=== PATIENT | female | born 2000 | race Caucasian/White ===

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

== ENCOUNTER 2018-01-05 15:11 | Inpatient (IN) | payer OTHER ==
[2018-01-05] MEDS: LR 800 ML IV (15:30)
[2018-01-05 15:42] LABS: HEMATOCRIT 33.3 % (36.0-47.0); HEMOGLOBIN 11.7 g/dl (12.0-15.5); MEAN CORPUSCULAR HGB CONC 35.1 g/dl (32.0-36.5); MEAN CORPUSCULAR VOLUME 88.1 fl (80.0-96.0); PLATELET COUNT, AUTOMATED 189 10^3/uL (150-450); RED BLOOD COUNT 3.78 10^6/uL (4.00-5.40); RED CELL DISTRIBUTION WIDTH 12.8 % (11.5-14.5); WHITE BLOOD COUNT 12.8 10^3/uL (4.0-10.0)
[2018-01-05 16:13] LABS: ALT/SGPT 19 U/L (12-78); AST/SGOT 13 U/L (7-37); BILIRUBIN,TOTAL 0.3 MG/DL (0.2-1.0); LDH LACTATE DEHYDROGENASE 178 U/L (84-246); URIC ACID 3.1 MG/DL (2.6-6.0)
[2018-01-05] MEDS: LR 1,000 ML IV ×3 (16:29→20:15)
[2018-01-05] MEDS ORDERED: ceFAZolin 2 GM/D5W 50 ML IV BAG (J0690 PER 500MG) As Ordered (17:04)
[2018-01-05] MEDS ORDERED: BICITRA 30ML SOLN UDC As Ordered (17:04)
[2018-01-05] MEDS: BICITRA 30ML SOLN UDC PO (17:11)
[2018-01-05] MEDS ORDERED: MORPHINE PRES-FREE INJ 10 MG/10 ML VIAL (J2274) As Ordered (17:21)
[2018-01-05] MEDS ORDERED: OXYTOCIN INJ 10 UNITS/ML VIAL (J2590) As Ordered (17:21)
[2018-01-05] MEDS ORDERED: ONDANSETRON 4MG/2ML VIAL (J2405) As Ordered (17:21)
[2018-01-05] MEDS ORDERED: fentaNYL 100 MCG/2 ML INJECTION (J3010) As Ordered (17:21)
[2018-01-05] MEDS ORDERED: METHYLERGONOVINE MALEATE 0.2 MG TAB PO (17:30)
[2018-01-05] MEDS ORDERED: ONDANSETRON 4MG/2ML VIAL (J2405) IV ×3 (17:30→18:45)
[2018-01-05] MEDS ORDERED: MOM 30ML SUSPENSION UDC PO (17:30)
[2018-01-05] MEDS ORDERED: METOCLOPRAMIDE INJ 10MG/2ML VIAL (J2765) IV ×2 (17:38→18:45)
[2018-01-05] MEDS ORDERED: NALOXONE INJ 0.4 MG/1 ML VIAL (J2310) IV ×2 (17:38)
[2018-01-05] MEDS ORDERED: NALBUPHINE HCL 10 MG/ML AMP (J2300) IV (17:38)
[2018-01-05 18:27] LABS: CORD GAS ABE V -3.9; CORD GAS HCO3 V 20.9 MEQ/L; CORD GAS O2 SAT V 79.1 %; CORD GAS PCO2 V 37.3 mmHg; CORD GAS PH V 7.366 UNITS; CORD GAS PO2 V 33.2 mmHg; CORD GAS SBC V 20.8 MEQ/L
[2018-01-05 18:28] LABS: CORD GAS ABE A -3.8; CORD GAS HCO3 A 22.6 MEQ/L; CORD GAS O2 SAT A 23.8 %; CORD GAS PCO2 A 46.2 mmHg; CORD GAS PH A 7.308 UNITS; CORD GAS PO2 A 13.3 mmHg; CORD GAS SBC A 19.8 MEQ/L; CORD GAS TCO2 A 24.1 MEQ/L
[2018-01-05] MEDS ORDERED: PERCOCET 5MG/325MG TAB PO (18:45)
[2018-01-05] MEDS ORDERED: fentaNYL 100 MCG/2 ML INJECTION (J3010) IV (18:45)
[2018-01-05] MEDS ORDERED: MEPERIDINE INJ 25 MG/ML VIAL (J2175) IV (18:45)
[2018-01-05] MEDS: NORCO, ANEXSIA 5/325MG TABLET (HYDROcodone/ACETAMINOPHEN) PO (20:27)
[2018-01-05] MEDS: DOCUSATE SODIUM 100 MG CAP PO (20:27)
[2018-01-05] MEDS: IBUPROFEN 800 MG TAB PO (22:00)
[2018-01-06] MEDS: NORCO, ANEXSIA 5/325MG TABLET (HYDROcodone/ACETAMINOPHEN) PO ×4 (00:50→22:04)
[2018-01-06] MEDS: LR 1,000 ML IV ×3 (01:17→13:23)
[2018-01-06] MEDS: IBUPROFEN 800 MG TAB PO ×3 (05:13→21:06)
[2018-01-06 07:14] LABS: HEMATOCRIT 28.8 % (36.0-47.0); HEMOGLOBIN 10.1 g/dl (12.0-15.5); MEAN CORPUSCULAR HEMOGLOBIN 31.1 pg (27.0-33.0); MEAN CORPUSCULAR HGB CONC 35.1 g/dl (32.0-36.5); MEAN CORPUSCULAR VOLUME 88.6 fl (80.0-96.0); PLATELET COUNT, AUTOMATED 161 10^3/uL (150-450); RED BLOOD COUNT 3.25 10^6/uL (4.00-5.40); RED CELL DISTRIBUTION WIDTH 12.7 % (11.5-14.5); WHITE BLOOD COUNT 11.9 10^3/uL (4.0-10.0)
[2018-01-06] MEDS: PRENATAL VITAMINS CHEWABLE TABLET PO (09:18)
[2018-01-06] MEDS: DOCUSATE SODIUM 100 MG CAP PO ×2 (09:18→21:05)
[2018-01-07] MEDS: NORCO, ANEXSIA 5/325MG TABLET (HYDROcodone/ACETAMINOPHEN) PO ×5 (02:08→23:13)
[2018-01-07] MEDS: IBUPROFEN 800 MG TAB PO ×3 (05:14→22:03)
[2018-01-07] MEDS: PRENATAL VITAMINS CHEWABLE TABLET PO (07:45)
[2018-01-07] MEDS: DOCUSATE SODIUM 100 MG CAP PO ×2 (07:45→22:03)
[2018-01-07] MEDS: MEASLES,MUMPS,RUBELLA VACCINE INJ (MMR-II) (90707) SC (20:04)
[2018-01-07] MEDS: RHOGAM 300 MCG (1500 IU) INJ (J2790) IM (20:04)
[2018-01-08] MEDS: NORCO, ANEXSIA 5/325MG TABLET (HYDROcodone/ACETAMINOPHEN) PO (04:34)
[2018-01-08] MEDS: IBUPROFEN 800 MG TAB PO ×2 (06:38→13:22)
[2018-01-08] MEDS: PRENATAL VITAMINS CHEWABLE TABLET PO (07:47)
[2018-01-08] MEDS: DOCUSATE SODIUM 100 MG CAP PO (07:47)
== END 2018-01-08 13:50 | disposition home or self-care (01) | DRG 540 ==
LOC: M LDI 15:11 → M OBS 19:47
PROC: 10D00Z1 Extraction of Products of Conception, Low, Open Approach (ICD-10-PCS; principal; 2018-01-05 17:25)
DX: O41.03X0 Oligohydramnios, third trimester, not applicable or unspecified (principal); Z37.0 Single live birth; Z3A.37 37 weeks gestation of pregnancy; O36.5930 Maternal care for other known or suspected poor fetal growth, third trimester, not applicable or unspecified; O32.1XX0 Maternal care for breech presentation, not applicable or unspecified; O69.81X0 Labor and delivery complicated by cord around neck, without compression, not applicable or unspecified

== ENCOUNTER → 2018-01-05 | Outpatient (CLI) | payer OTHER | LOC: M RAD 06:27 | DX: O26.849 Uterine size-date discrepancy, unspecified trimester (principal); Z3A.37 37 weeks gestation of pregnancy | CPT/HCPCS: 76815 ==

== ENCOUNTER → 2018-04-09 | Outpatient (CLI) | payer OTHER ==
[2018-04-09 21:07] LABS: IRON (FE) 63 UG/DL (50-170)
== END ==
LOC: M WUC 15:54
DX: E61.1 Iron deficiency (principal)
CPT/HCPCS: 83540

== ENCOUNTER → 2020-01-10 | Outpatient (REF) | payer OTHER ==
[~2020-01-10] MED LIST: IBUP-1114 PO; NORC1TAB7 PO; PERC5TAB12 PO; PRENTAB16 PO
== END ==
LOC: M LAB REF 20:19
PROVIDERS: ATTEND Physician Assistant Medical
DX: Z03.818 Encounter for observation for suspected exposure to other biological agents ruled out (principal); Z11.59 Encounter for screening for other viral diseases

== ENCOUNTER → 2021-03-01 | Outpatient (REF) | payer OTHER ==
[2021-03-01 18:27] LABS: HEMATOCRIT 35.9 % (36.0-47.0); HEMOGLOBIN 11.9 g/dl (12.0-15.5); MEAN CORPUSCULAR HEMOGLOBIN 28.7 pg (27.0-33.0); MEAN CORPUSCULAR HGB CONC 33.1 g/dl (32.0-36.5); MEAN CORPUSCULAR VOLUME 86.5 fl (80.0-96.0); PLATELET COUNT, AUTOMATED 205 10^3/uL (150-450); RED BLOOD COUNT 4.15 10^6/uL (4.00-5.40); WHITE BLOOD COUNT 6.8 10^3/uL (4.0-10.0)
[2021-03-01 19:56] LABS: HCG, SERUM QUANTITATIVE 3276 MIU/ML; HEPATITIS B SURFACE ANTIGEN NEGATIVE (NEGATIVE); HEPATITIS C VIRUS ABY INDEX < 0.0 INDEX (<0.8); HIV 1&2 SCREEN CENTAUR NEGATIVE (NEGATIVE)
== END ==
LOC: M LAB REF 17:10
PROVIDERS: ATTEND Obstetrics & Gynecology
DX: O36.80X0 Pregnancy with inconclusive fetal viability, not applicable or unspecified (principal); Z32.01 Encounter for pregnancy test, result positive

== ENCOUNTER → 2021-07-30 | Outpatient (CLI) | payer OTHER ==
[2021-07-30 12:08] LABS: HEMATOCRIT 33.7 % (36.0-47.0); HEMOGLOBIN 11.2 g/dl (12.0-15.5); MEAN CORPUSCULAR HEMOGLOBIN 30.4 pg (27.0-33.0); MEAN CORPUSCULAR HGB CONC 33.2 g/dl (32.0-36.5); MEAN CORPUSCULAR VOLUME 91.6 fl (80.0-96.0); PLATELET COUNT, AUTOMATED 205 10^3/uL (150-450); RED BLOOD COUNT 3.68 10^6/uL (4.00-5.40); WHITE BLOOD COUNT 10.2 10^3/uL (4.0-10.0)
== END ==
LOC: M LAB 08:53
PROVIDERS: ATTEND Advanced Practice Midwife
DX: Z34.82 Encounter for supervision of other normal pregnancy, second trimester (principal)

== ENCOUNTER → 2021-10-04 | Outpatient (REF) | payer OTHER | LOC: M LAB REF 12:46 | PROVIDERS: ATTEND Obstetrics & Gynecology | DX: Z34.83 Encounter for supervision of other normal pregnancy, third trimester (principal) ==

== ENCOUNTER → 2021-11-03 | Outpatient (CLI) | payer OTHER | LOC: M LABSMTC 09:57 | PROVIDERS: ATTEND Anesthesiology | DX: Z01.812 Encounter for preprocedural laboratory examination (principal); Z20.822 Contact with and (suspected) exposure to COVID-19 ==

== ENCOUNTER 2021-11-07 12:18 | Inpatient (IN) | payer OTHER ==
[2021-11-07] VITALS (11 sets, daily range): BP systolic 124–175; BP diastolic 68–96
[~2021-11-07] VITALS: Ht 167.6 cm; Wt 104.1 kg
[2021-11-07] MEDS ORDERED: LACTATED RINGER'S 1000 ML IV STA (12:48)
[2021-11-07] MEDS ORDERED: CARBOPROST TROMETHAMINE 250 MCG/ML AMP IM PRN (12:50)
[2021-11-07] MEDS ORDERED: LIDOCAINE 1% MDV 20ML VIAL INFIL PRN (12:50)
[2021-11-07] MEDS ORDERED: OXYTOCIN INJ 10 UNITS/ML VIAL (J2590) IM PRN (12:50)
[2021-11-07] MEDS ORDERED: METHYLERGONOVINE MALEATE 0.2 MG/ML VIAL (J2210) IM PRN (12:50)
[2021-11-07] MEDS ORDERED: OXYTOCIN DRIP 30 UNITS in IV 1 EA IV PRN ×4 (12:50)
[2021-11-07] MEDS ORDERED: TRANEXAMIC ACID INJection 1,000 MG in NS 100 ML IV PRN (12:50)
[2021-11-07] MEDS ORDERED: ACET-897 PO (13:07)
[2021-11-07] MEDS ORDERED: TUMS750C5 PO (13:09)
[2021-11-07] MEDS ORDERED: HOME MED LIST COMPLETE! XX SCH (13:10)
[2021-11-07 13:15] LABS: HEMATOCRIT 33.2 % (36.0-47.0); MEAN CORPUSCULAR HEMOGLOBIN 28.2 pg (27.0-33.0); MEAN CORPUSCULAR HGB CONC 33.1 g/dl (32.0-36.5); MEAN CORPUSCULAR VOLUME 85.1 fl (80.0-96.0); PLATELET COUNT, AUTOMATED 206 10^3/uL (150-450); WHITE BLOOD COUNT 14.4 10^3/uL (4.0-10.0)
[2021-11-07] MEDS ORDERED: LR 1,000 ML IV SCH (14:35)
[2021-11-07] MEDS ORDERED: RHOGAM 300 MCG (1500 IU) INJ (J2790) IM SCH (16:40)
[2021-11-07] MEDS ORDERED: ANUSOL HC CREAM 30GM TOP PRN (16:40)
[2021-11-07] MEDS ORDERED: DIBUCAINE 1% OINTMENT 30GM TOP PRN (16:40)
[2021-11-07] MEDS ORDERED: MEASLES,MUMPS,RUBELLA VACCINE INJ (MMR-II) (90707) SC SCH (16:40)
[2021-11-07] MEDS ORDERED: ACETAMINOPHEN TAB 650MG DOSE (2X325MG) PO PRN (16:40)
[2021-11-07] MEDS ORDERED: IBUPROFEN 600MG TAB PO PRN (16:40)
[2021-11-07] MEDS: IBUPROFEN 800 MG TAB PO PRN (17:03)
[2021-11-07] MEDS: ACETAMINOPHEN 500 MG TAB PO PRN (21:52)
[2021-11-07] MEDS: DOCUSATE SODIUM 100MG CAPSULE PO PRN (21:52)
[2021-11-08] MEDS: IBUPROFEN 800 MG TAB PO PRN ×2 (03:09→14:09)
[2021-11-08 05:47] VITALS: BP 132/63
[2021-11-08] MEDS: PRENATAL VITAMINS CHEWABLE TABLET PO SCH (08:23)
[2021-11-08] MEDS: ACETAMINOPHEN 500 MG TAB PO PRN ×2 (08:37→19:53)
[2021-11-08 18:00] VITALS: BP 124/60
[2021-11-08] MEDS: DOCUSATE SODIUM 100MG CAPSULE PO PRN (19:52)
[2021-11-09] MEDS: IBUPROFEN 800 MG TAB PO PRN (02:24)
[2021-11-09 06:00] VITALS: BP 125/63
[2021-11-09] MEDS: PRENATAL VITAMINS CHEWABLE TABLET PO SCH (08:48)
[2021-11-09] MEDS ORDERED: BOOSTRIX/ADACEL VACCINE (DIPHTH/PERTUSS/ACELL/TETANUS) 0.5ML SYR IM ONE (09:00)
== END 2021-11-09 12:35 | disposition home or self-care (01) | DRG 560 ==
LOC: M LDI 12:18 → M OBS 20:31
PROVIDERS: ADMIT Advanced Practice Midwife; ATTEND Obstetrics & Gynecology
PROC: 10D07Z6 Extraction of Products of Conception, Vacuum, Via Natural or Artificial Opening (ICD-10-PCS; principal; 2021-11-07)
PROC: 0KQM0ZZ Repair Perineum Muscle, Open Approach (ICD-10-PCS; 2021-11-07)
DX: O34.211 Maternal care for low transverse scar from previous cesarean delivery (principal); Z3A.40 40 weeks gestation of pregnancy; O69.1XX0 Labor and delivery complicated by cord around neck, with compression, not applicable or unspecified; O76 Abnormality in fetal heart rate and rhythm complicating labor and delivery; O70.1 Second degree perineal laceration during delivery; Z37.0 Single live birth

== ENCOUNTER → 2024-02-13 | Outpatient (REF) | payer OTHER ==
[~2024-02-13] MED LIST changes: +ACET-897 PO; +TUMS750C5 PO
== END ==
LOC: M LAB REF 20:15
PROVIDERS: ATTEND Physician Assistant Medical
DX: J02.9 Acute pharyngitis, unspecified (principal)